=== PATIENT | male | born 1950 | race Caucasian/White ===

== ENCOUNTER 2019-02-09 17:14 | Emergency (ER) | payer OTHER ==
[~2019-02-09] VITALS: Ht 175.3 cm; Wt 117.9 kg
== END 2019-02-09 23:25 | disposition home or self-care (01) ==
LOC: ER 17:14
DX: N40.1 Benign prostatic hyperplasia with lower urinary tract symptoms (principal); N39.498 Other specified urinary incontinence; M54.5 Low back pain

== ENCOUNTER 2019-02-24 10:58 | Emergency (ER) | payer OTHER ==
[~2019-02-24] VITALS: Ht 175.3 cm; Wt 117.9 kg
[2019-02-24] MEDS ORDERED: TAMS0.4C (11:32)
[2019-02-24] MEDS ORDERED: CIPRO500 MG (11:32)
[2019-02-24] MEDS ORDERED: TAMS0.4C PO (15:37)
== END 2019-02-24 16:56 | disposition home or self-care (01) ==
LOC: ER 10:58
DX: R33.8 Other retention of urine (principal); Z46.6 Encounter for fitting and adjustment of urinary device

== ENCOUNTER 2022-05-17 22:52 | Emergency (ER) | payer OTHER ==
[~2022-05-17] VITALS: Ht 175.3 cm; Wt 120.2 kg
[~2022-05-17 22:52] MED LIST: CIPRO500 MG; TAMS0.4C; TAMS0.4C PO
== END 2022-05-18 00:25 | disposition home or self-care (01) ==
LOC: ER 22:52
DX: L03.116 Cellulitis of left lower limb (principal); L02.416 Cutaneous abscess of left lower limb; B95.61 Methicillin susceptible Staphylococcus aureus infection as the cause of diseases classified elsewhere

== ENCOUNTER 2022-05-19 19:42 | Emergency (ER) | payer OTHER ==
[~2022-05-19] VITALS: Ht 175.3 cm; Wt 122.5 kg
== END 2022-05-19 23:13 | disposition home or self-care (01) ==
LOC: ER 19:42
DX: L03.116 Cellulitis of left lower limb (principal)

== ENCOUNTER 2022-05-21 21:05 | Inpatient (IN) | payer OTHER ==
[~2022-05-21] VITALS: Ht 175.3 cm; Wt 108.9 kg
[2022-05-26] MEDS ORDERED: MAGNESIUM500 MG (08:43)
[2022-05-26] MEDS ORDERED: CALTRATE 600+D1 EAC1 (08:43)
[2022-05-26] MEDS ORDERED: EMERGEN-C 1,01000 MG (08:43)
[2022-05-26] MEDS ORDERED: SILDENAFIL CIT100 MG (08:43)
[2022-05-26] MEDS ORDERED: VITAMIN D350 MCG (08:43)
== END 2022-05-27 22:24 | disposition home or self-care (01) | DRG 603 ==
LOC: ER 21:05 → MEDJ 23:12 → SEC-K 23:12 → SURG 05-22 03:26 → MEDJ 05-22 04:35
PROVIDERS: ADMIT Internal Medicine; ATTEND Internal Medicine
PROC: B54CZZZ Ultrasonography of Left Lower Extremity Veins (ICD-10-PCS; 2022-05-21)
PROC: 0HDLXZZ Extraction of Left Lower Leg Skin, External Approach (ICD-10-PCS; principal; 2022-05-22)
DX: L03.116 Cellulitis of left lower limb (principal); L97.929 Non-pressure chronic ulcer of unspecified part of left lower leg with unspecified severity; L02.416 Cutaneous abscess of left lower limb; L08.9 Local infection of the skin and subcutaneous tissue, unspecified; B95.61 Methicillin susceptible Staphylococcus aureus infection as the cause of diseases classified elsewhere; Z20.822 Contact with and (suspected) exposure to COVID-19

== ENCOUNTER 2025-02-02 14:17 | Inpatient (IN) | payer OTHER ==
[~2025-02-02] VITALS: Ht 167.6 cm; Wt 63.5 kg
[~2025-02-02 14:17] MED LIST changes: +CALTRATE 600+D1 EAC1; +EMERGEN-C 1,01000 MG; +MAGNESIUM500 MG; +SILDENAFIL CIT100 MG; +VITAMIN D350 MCG
[2025-02-02] MEDS ORDERED: LOSARTAN POTASS50 MG PO (15:10)
--- NOTE | 2025-02-02 15:15 | NUR ---
SE RECIBE PTE ALERTA, ORIENTADO X3 Y AMBULANDO. PTE REFIERE HACE DOS WILSON PRESENTAR CELULITIS EN PIERNA [place]. AREA SE OBSERVA CON ERITEMA, SUPURANDO Y CALIENTE AL TACTO. SE MIDEN S/V Y SE UBICA.
[2025-02-02] MEDS ORDERED: VANCOMYCIN HCL 1,000 MG VIAL IV ONE (16:15)
[2025-02-02] MEDS ORDERED: VANCOMYCIN HCL 1,000 MG VIAL ONE (16:20)
[2025-02-02 16:49] LABS: BASO % 0.2 % (0.1-1.2); EOS # 0.14 (0.04-0.54); EOS % 0.9 % (0.7-7.0); HEMATOCRIT 40.2 % (40.1-51.0); HEMOGLOBIN 14.3 g/dL (13.7-17.5); LYMPH # 2.57 (1.18-3.74); LYMPH % 17.3 % (19.3-53.1); MEAN CORPUSCULAR HEMOGLOBIN 31.8 pg (25.6-32.2); MONO % 11.5 % (4.7-12.5); NEUT # 10.35 (1.56-6.13); NEUT % 69.8 % (34.0-71.1); PLATELET COUNT 242 K/uL (163-369); RED CELL DISTRIBUTION WIDTH 13.1 % (11.6-14.4)
--- NOTE | 2025-02-02 16:53 | NUR ---
RN. PALOMINO ORIENTA PTE Y EJECUTA ORDEN MEDICA EN STOKES TOTALIDAD
[2025-02-02 16:58] LABS: ERYTHROCYTE SEDIMENTATION RATE 8 mm/hr (0-20)
[2025-02-02 17:15] LABS: ALBUMIN 3.5 gm/dL (3.4-5.0); BILIRUBIN TOTAL 0.63 mg/dL (0.3-1.2); CALCIUM 8.9 mg/dL (8.5-10.1); CREATININE SERUM 0.98 mg/dL (0.70-1.30); GFR 74.77; GLOBULINA 4.1 G/DL (2.4-3.5); POTASSIUM 3.53 mEq/L (3.5-5.1); TOTAL PROTEIN 7.6 gm/dL (6.4-8.2)
[2025-02-02 17:16] LABS: C-REACTIVE PROTEIN 1.5 MG/DL (0.00-0.29)
[2025-02-02] MEDS ORDERED: 0.9 % SODIUM CHLORIDE 1,000 ML IV SCH (17:30)
[2025-02-02] MEDS ORDERED: CEFTRIAXONE SODIUM 2,000 MG in 0.9 % SODIUM CHLORIDE 100 ML IV SCH (17:31)
[2025-02-02] MEDS ORDERED: FAMOTIDINE/PF 20 MG in 0.9 % SODIUM CHLORIDE 8 ML IV PUSH SCH (17:31)
[2025-02-02] MEDS ORDERED: KETOROLAC TROMETHAMINE 15 MG VIAL IU ONE (17:45)
[2025-02-02] MEDS ORDERED: ACETAMINOPHEN 500 MG GEL..CAP PO PRN (17:45)
[2025-02-02] MEDS ORDERED: FAMOTIDINE/PF 20 MG/2 ML VIAL ONE (20:44)
[2025-02-02] MEDS ORDERED: KETOROLAC TROMETHAMINE 30 MG VIAL ONE (20:44)
[2025-02-02] MEDS ORDERED: CEFTRIAXONE SODIUM 2,000 MG VIAL ONE (20:44)
[2025-02-03 01:04] VITALS: BP 131/86; O2SAT 98
[2025-02-03] MEDS ORDERED: VANCOMYCIN HCL 1,000 MG VIAL IV SCH (05:00)
[2025-02-03 07:10] LABS: INR 1.05; PROTHROMBIN TIME 11.4 SECONDS (9.0-11.5)
[2025-02-03] MEDS ORDERED: ENOXAPARIN SODIUM 40 MG/0.4 ML SYRINGE SUBCUTANEO SCH (09:00)
[2025-02-03] MEDS ORDERED: LACTOBACILLUS ACIDOPHILUS 1 CAP CAP PO SCH (09:00)
[2025-02-03] MEDS ORDERED: CHLORHEXIDINE GLUCONATE 120 ML BOTTLE TOP SCH (09:00)
[2025-02-03] MEDS ORDERED: LOSARTAN POTASSIUM 50 MG TABLET PO SCH (09:00)
[2025-02-03 09:52] VITALS: BP 152/83
[2025-02-03] MEDS ORDERED: MUPIROCIN 22 GM OINT..GM TUBE NASAL SCH (09:59)
[2025-02-03 12:32] LABS: CALCIUM 8.9 mg/dL (8.5-10.1); CREATININE SERUM 0.76 mg/dL (0.70-1.30); GFR 100.26; POTASSIUM 3.88 mEq/L (3.5-5.1)
[2025-02-03 18:43] VITALS: BP 163/85; O2SAT 96
[2025-02-03] MEDS ORDERED: LINEZOLID IN DEXTROSE 5% 300 ML IV SCH (21:00)
[2025-02-03] MEDS ORDERED: FAMOtidine 20 MG TABLET PO SCH (21:00)
[2025-02-03] MEDS ORDERED: LINEZOLID 600 MG TABLET PO SCH (21:00)
[2025-02-04 01:21] VITALS: BP 135/81; O2SAT 95
[2025-02-04 10:11] VITALS: BP 143/73; O2SAT 99
[2025-02-04 16:48] VITALS: BP 161/96; O2SAT 98
[2025-02-04 21:06] LABS: PH,URINE 6.5 (5.0-8.0); URINE APPEARANCE Clear; URINE BILIRRUBIN Negative (NEGATIVE); URINE BLOOD Small; URINE COLOR Yellow; URINE GLUCOSE Negative (NEGATIVE); URINE KETONE Negative (NEGATIVE); URINE LEUKOCYTE Negative; URINE NITRATE Negative; URINE PROTEIN Negative (NEGATIVE); URINE UROBILINOGEN 0.2 E.U./dl
[2025-02-04 21:08] LABS: URINE BACTERIA 8.5 uL (0.0-1933)
[2025-02-04 21:23] LABS: URINE EPITHELIAL CELLS 0.9 uL (0.0-38.8); URINE WBC 0.4 uL (0.0-23.2)
[2025-02-05 01:22] VITALS: BP 137/79; O2SAT 97
[2025-02-05] MEDS ORDERED: ENALAPRILAT DIHYDRATE 1.25 MG/ML VIAL IV PRN (04:30)
[2025-02-05 09:57] VITALS: BP 145/82; O2SAT 97
[2025-02-05 18:05] VITALS: BP 123/84; O2SAT 93
[2025-02-06 00:25] VITALS: BP 135/77; O2SAT 95
[2025-02-06 06:27] LABS: BASO % 0.3 % (0.1-1.2); EOS # 0.24 (0.04-0.54); EOS % 2.8 % (0.7-7.0); HEMATOCRIT 38.3 % (40.1-51.0); HEMOGLOBIN 13.3 g/dL (13.7-17.5); LYMPH # 2.12 (1.18-3.74); LYMPH % 24.3 % (19.3-53.1); MEAN CORPUSCULAR HEMOGLOBIN 31.2 pg (25.6-32.2); MONO # 1.98 (0.24-0.82); NEUT # 4.33 (1.56-6.13); NEUT % 49.7 % (34.0-71.1); PLATELET COUNT 220 K/uL (163-369); RED BLOOD COUNT 4.26 M/uL (4.63-6.08); RED CELL DISTRIBUTION WIDTH 13.1 % (11.6-14.4)
[2025-02-06 06:36] LABS: MONO % 22.7 % (4.7-12.5)
[2025-02-06 06:56] LABS: CALCIUM 8.2 mg/dL (8.5-10.1); CREATININE SERUM 0.86 mg/dL (0.70-1.30); GFR 86.93; PHOSPHOROUS 3.4 mg/dL (2.5-4.9); POTASSIUM 4.02 mEq/L (3.5-5.1)
[2025-02-06 06:57] LABS: C-REACTIVE PROTEIN 8.34 MG/DL (0.00-0.29)
[2025-02-06 08:32] VITALS: BP 142/86
[2025-02-06 18:22] VITALS: BP 128/87
[2025-02-07 00:43] VITALS: BP 143/87; O2SAT 98
[2025-02-07 08:39] VITALS: BP 133/75
[2025-02-07] MEDS ORDERED: MEROPENEM 500 MG/VIAL VIAL IV SCH (14:00)
[2025-02-07 17:32] VITALS: BP 152/88
[2025-02-08 00:25] VITALS: BP 135/75; O2SAT 97
[2025-02-08 08:22] VITALS: BP 157/84; O2SAT 96
[2025-02-08 11:53] LABS: BASO % 0.3 % (0.1-1.2); EOS # 0.18 (0.04-0.54); EOS % 2.3 % (0.7-7.0); HEMATOCRIT 40.9 % (40.1-51.0); HEMOGLOBIN 13.9 g/dL (13.7-17.5); LYMPH # 1.83 (1.18-3.74); LYMPH % 23.5 % (19.3-53.1); MEAN CORPUSCULAR HEMOGLOBIN 31.1 pg (25.6-32.2); MONO # 1.36 (0.24-0.82); NEUT # 4.35 (1.56-6.13); NEUT % 55.9 % (34.0-71.1); PLATELET COUNT 256 K/uL (163-369); RED BLOOD COUNT 4.47 M/uL (4.63-6.08); RED CELL DISTRIBUTION WIDTH 12.8 % (11.6-14.4)
[2025-02-08 12:07] LABS: MONO % 17.5 % (4.7-12.5)
[2025-02-08 12:23] LABS: ERYTHROCYTE SEDIMENTATION RATE 19 mm/hr (0-20)
[2025-02-08 12:34] LABS: ALBUMIN 3.2 gm/dL (3.4-5.0); BILIRUBIN TOTAL 0.67 mg/dL (0.3-1.2); CALCIUM 8.5 mg/dL (8.5-10.1); CREATININE SERUM 0.84 mg/dL (0.70-1.30); GFR 89.32; GLOBULINA 3.9 G/DL (2.4-3.5); POTASSIUM 3.58 mEq/L (3.5-5.1); TOTAL PROTEIN 7.1 gm/dL (6.4-8.2)
[2025-02-08 12:35] LABS: C-REACTIVE PROTEIN 4.29 MG/DL (0.00-0.29)
[2025-02-08] MEDS ORDERED: CLOTRIMAZOLE 30 GM TUBE TOP SCH (17:00)
[2025-02-08 17:16] VITALS: BP 143/78
[2025-02-09 01:40] VITALS: BP 136/80
[2025-02-09 09:14] VITALS: BP 137/84; O2SAT 99
[2025-02-10 02:57] VITALS: BP 147/85
[2025-02-10 09:47] VITALS: BP 152/82; O2SAT 97
[2025-02-10 18:31] VITALS: BP 139/87
[2025-02-11 02:17] VITALS: BP 151/83; O2SAT 96
[2025-02-11 09:19] VITALS: BP 144/84; O2SAT 98
[2025-02-11 18:25] VITALS: BP 148/81
[2025-02-12 02:39] VITALS: BP 143/86; O2SAT 95
[2025-02-12 10:04] VITALS: BP 154/86
[2025-02-12 17:30] VITALS: BP 156/87
[2025-02-13 01:47] VITALS: BP 120/73; O2SAT 96
[2025-02-13 08:40] VITALS: BP 154/90; O2SAT 99
[2025-02-13] MEDS ORDERED: LINEZOLID600 MG PO (15:46)
[2025-02-13] MEDS ORDERED: CLOTRIMAZOLE45 G1 TOP (15:46)
[2025-02-13] MEDS ORDERED: FAMOTIDINE20 MG PO (15:46)
[2025-02-13] MEDS ORDERED: INTESTINEX680 M1 PO (15:46)
[2025-02-13 16:57] VITALS: BP 173/97
== END 2025-02-13 18:40 | disposition home or self-care (01) | DRG 603 ==
LOC: ER 14:45 → MEDJ 18:03
PROVIDERS: General Practice; Internal Medicine Geriatric Medicine; Internal Medicine Infectious Disease; ADMIT Internal Medicine; ATTEND Internal Medicine
PROC: 8E0ZXY6 Isolation (ICD-10-PCS; 2025-02-03)
PROC: B54DZZZ Ultrasonography of Bilateral Lower Extremity Veins (ICD-10-PCS; principal; 2025-02-04)
PROC: BQ3FZZZ Magnetic Resonance Imaging (MRI) of Left Lower Leg (ICD-10-PCS; 2025-02-07)
DX: L02.416 Cutaneous abscess of left lower limb (principal); B95.61 Methicillin susceptible Staphylococcus aureus infection as the cause of diseases classified elsewhere; L03.116 Cellulitis of left lower limb; I10 Essential (primary) hypertension; G47.33 Obstructive sleep apnea (adult) (pediatric); B35.3 Tinea pedis
CPT/HCPCS: 73725